=== PATIENT | female | born 1955 | race Caucasian/White ===

== ENCOUNTER → 2017-05-09 | Day surgery (SDC) | payer MEDICARE ==
[~2017-05-09] MED LIST: APRI0.372 PO; ASPI81TA82 PO; BD P32MI; BYET10IN2 SQ; CHOL1CAP PO; CHOL4 PO; CHOL4POW4 PO; EXEN10PE SQ; FURO40TA PO; GABA300C3 PO; GABA300C5 PO; GLIP10TA6 PO; GLUCOMETER XX; LACTATED RINGER'S 1000 ML INJ 1,000 ML ONE; LEVO200T4 PO; LEVO25TA4 PO; LISI-519 PO; MEDICAL COMPRES1 MI3; METF1000 PO; POTA-243 PO; PROPOFOL 500 MG/50 ML BTL IV ONE; SIMV20TA PO; THEO200T27 PO; THEO400T2 PO; TRAM50TA PO; VARE.5 PO; VARE1 PO
--- NOTE | 2017-05-09 13:14 | GIPROC ---
[facility] [address] [facility], [id number] COLONOSCOPY PROCEDURE REPORT EXAM DATE: 05/09/2017 PATIENT NAME: Naomy Stephen MR #: [id number] BIRTHDATE: 1955 ENDOSCOPIST: Corbin Mae MD ORDER #: [id number] COMBINE OPERATOR: Annie Benito RN STATUS: outpatient INDICATIONS: The patient is a 62 yr old female here for a colonoscopy due to follow up on UC PROCEDURE PERFORMED: Colonoscopy with biopsy MEDICATIONS: None and Per Anesthesia. PREP QUALITY: good ESTIMATED BLOOD LOSS: None CONSENT: The patient understands the risks and benefits of the procedure and understands that these risks include, but are not limited to: sedation, allergic reaction, infection, perforation and/or bleeding. Alternative means of evaluation and treatment include, among others: physical exam, x-rays, and/or surgical intervention. The patient elects to proceed with this endoscopic procedure. medical equipment was checked for proper function. Hand hygiene and appropriate measures for infection prevention was taken. After the risks, benefits and alternatives of the procedure were thoroughly explained, Informed consent was verified, confirmed and timeout was successfully executed by the treatment team. A digital exam revealed no abnormalities of the rectum The EC-[id number] ([id number] endoscope was introduced through the anus and advanced to the cecum, which was identified by both the appendix and ileocecal valve. The instrument was then slowly withdrawn as the colon was fully examined. COLON FINDINGS: A large sized patch of colitis was found in the sigmoid colon. The mucosa was edematous, erythematous and ulcerated. This is consistent with ulcerative colitis disease. Multiple biopsies were performed. The colon mucosa was otherwise normal. Multiple random biopsies of the area were performed. Retroflexed views revealed no abnormalities The scope was then completely withdrawn from the patient and the procedure terminated. PROCEDURE WITHDRAWAL TIME:13.6minutes ADVERSE EVENTS: There were no complications. IMPRESSIONS: 1. Large sized colitis was found in the sigmoid colon; The mucosa was edematous, erythematous and ulcerated; This is consistent with ulcerative colitis.; multiple biopsies were performed 2. The colon mucosa was otherwise normal; multiple random biopsies of the area were performed 3. Retroflexed views revealed no abnormalities 4. Revealed no abnormalities of the rectum RECOMMENDATIONS: 1. Await biopsy results. Biopsy results will not be ready for 7-10 days. If you don't hear from us in two weeks, call our office for results. 2. Follow-up: GI Clinic 3 week(s) 3. Consider adding treatment or increasing dose RECALL: Return 1 year Colonoscopy Corbin Mae MD eSigned: Corbin Mae MD 05/09/2017 1:14 PM cc: Enedelia Arita PATIENT NAME: Naomy Stephen MR#: [id number]
== END | disposition home or self-care (01) ==
LOC: ESDC 10:09
PROVIDERS: ATTEND Internal Medicine Gastroenterology
DX: K51.90 Ulcerative colitis, unspecified, without complications (principal)
CPT/HCPCS: 00810; 45380; 88305; J7120

== ENCOUNTER 2017-08-25 08:11 | Observation (INO) | payer MEDICARE, MEDICAID ==
[2017-08-25] VITALS (12 sets, daily range): BP systolic 131–201; BP diastolic 68–88; PULSE 64–113; RESP 14–20; TEMP 97.6–98.7; O2SAT 94–100
[~2017-08-25] VITALS: Ht 165.1 cm; Wt 100.0 kg
[~2017-08-25 08:11] MED LIST changes: -LACTATED RINGER'S 1000 ML INJ 1,000 ML ONE; +LANTINJ SQ; +LEVO-171 PO; -LEVO200T4 PO; -LEVO25TA4 PO; +LEVO75TA3 PO; -PROPOFOL 500 MG/50 ML BTL IV ONE
[2017-08-25] MEDS ORDERED: ASPI81CH CHEW (08:54)
[2017-08-25] MEDS ORDERED: LEVO75TA3 PO (08:54)
[2017-08-25] MEDS ORDERED: SIMV20TA PO (08:54)
[2017-08-25] MEDS ORDERED: FURO80TA PO (08:54)
[2017-08-25] MEDS ORDERED: THEO400T2 PO (08:54)
[2017-08-25] MEDS ORDERED: LISI-519 PO (08:54)
[2017-08-25] MEDS ORDERED: POTA-163 PO (08:54)
[2017-08-25] MEDS ORDERED: GABA300C5 PO ×2 (08:54→17:04)
[2017-08-25] MEDS ORDERED: GLIP10TA6 PO (08:54)
[2017-08-25] MEDS ORDERED: CHOLESTRAMINE (08:54)
[2017-08-25] MEDS ORDERED: METF1000 PO (08:54)
[2017-08-25] MEDS ORDERED: APRI0.372 PO (08:54)
[2017-08-25] MEDS ORDERED: CHOL1CAP PO (08:54)
[2017-08-25] MEDS ORDERED: BUDE3CAP PO (08:54)
[2017-08-25] MEDS ORDERED: MORPHINE SULFATE 4 MG/ML INJ IV PUSH ONE (09:00)
[2017-08-25] MEDS ORDERED: ONDANSETRON HCL 4 MG/2 ML VIAL IV PUSH ONE (09:00)
[2017-08-25] MEDS ORDERED: SODIUM CHLORIDE 0.9% FLUSH 10 ML FLUSH IVF PRN (09:00)
[2017-08-25] MEDS ORDERED: ASPIRIN 81 MG CHEW TAB PO ONE (09:00)
[2017-08-25] MEDS ORDERED: LANTINJ SQ ×2 (09:01→17:05)
--- NOTE | 2017-08-25 09:24 | RADRPT ---
EXAM DATE/TIME: 08/25/2017 09:04 [facility] COMPARISON: CHEST SINGLE AP, March 07, 2016, 19:58. INDICATIONS : Chest pain. MEDICAL HISTORY : Myocardial infarction. Hypercholesterolemia. Chronic obstructive pulmonary disease. Thyroid disea se. Diabetic neuorpathy. CHF. CAD. Hypertension. Pneumonia. Sleep apnea.Dyspnea Hiatial Hernia. Arth ritis. Diabetic. SURGICAL HISTORY : Tonsillectomy. section. Tubal ligation. Cholecystectomy. ENCOUNTER: Initial ACUITY: 3 days PAIN SCORE: 7/10 LOCATION: chest FINDINGS: A single view of the chest demonstrates minimal bibasilar densities. Lungs are better aerated. Heart borderline enlarged. Osseous structures are intact. CONCLUSION: Minimal bibasilar densities likely atelectasis. Tom Smith MD on August 25, 2017 at 9:23 Board Certified Radiologist. This report was verified electronically.
[2017-08-25 09:32] LABS: BASOPHIL # 0.1 TH/MM3 (0-0.2); BASOPHIL % 0.8 % (0.0-2.0); EOSINOPHIL # 0.3 TH/MM3 (0-0.4); EOSINOPHIL % 2.5 % (0.0-4.0); HEMATOCRIT 38.1 % (35.0-46.0); HEMO FLAGS DIFF FINAL; LYMPH % 38.9 % (9.0-44.0); LYMPHOCYTE # 4.5 TH/MM3 (1.0-4.8); MEAN CELL VOLUME 85.8 FL (80.0-100.0); MEAN CORPUSCULAR HEMOGLOBIN 28.3 PG (27.0-34.0); MONO % 6.1 % (0.0-8.0); NEUT % 51.7 % (16.0-70.0); PLATELET COUNT 320 TH/MM3 (150-450); RED BLOOD COUNT 4.44 MIL/MM3 (4.00-5.30); RED CELL DISTRIBUTION WIDTH 13.9 % (11.6-17.2); WHITE BLOOD COUNT 11.6 TH/MM3 (4.0-11.0)
[2017-08-25 09:41] LABS: APTT (PATIENT) 26.8 SEC (24.3-30.1); INTERNATIONAL NORMALIZED RATIO 0.9 RATIO; PROTHROMBIN TIME - PATIENT 10.3 SEC (9.8-11.6)
[2017-08-25 09:51] LABS: ALT (GPT) 18 U/L (10-53)
[2017-08-25 09:55] LABS: ANION GAP 9 MEQ/L (5-15); AST (GOT) 22 U/L (15-37); BLOOD UREA NITROGEN 17 MG/DL (7-18); CHLORIDE 105 MEQ/L (98-107); GLOMERULAR FILTRATION RATE 117 ML/MIN (>89); POTASSIUM 4.9 MEQ/L (3.5-5.1); SODIUM (NA) 138 MEQ/L (136-145)
[2017-08-25 09:58] LABS: ALKALINE PHOSPHATASE 56 U/L (45-117); TOTAL BILIRUBIN ADULT 0.4 MG/DL (0.2-1.0)
[2017-08-25 10:02] LABS: CREATINE KINASE 82 U/L (26-192)
[2017-08-25] MEDS ORDERED: IOHEXOL 350 MG/ML 10 ML VIAL (for RAD DIAG) IVCONTRAST ONE (10:18)
--- NOTE | 2017-08-25 10:44 | RADRPT ---
EXAM DATE/TIME: 08/25/2017 10:03 [facility] COMPARISON: CT ABDOMEN & PELVIS W CONTRAST, March 11, 2016, 14:52. INDICATIONS : Left lower abdominal pain IV CONTRAST: 96 cc Omnipaque 350 (iohexol) IV ORAL CONTRAST: No oral contrast ingested. RADIATION DOSE: 23.06 CTDIvol (mGy) ; Patient body habitus MEDICAL HISTORY : Hypertension. Cardiovascular disease Chronic obstructive pulmonary disease.Diabetes SURGICAL HISTORY : Tubal ligation. ENCOUNTER: Initial ACUITY: 1 day PAIN SCALE: 6/10 LOCATION: Left lower quadrant TECHNIQUE: Volumetric scanning of the abdomen and pelvis was performed. Using automated exposure control and ad justment of the mA and/or kV according to patient size, radiation dose was kept as low as reasonably achievable to obtain optimal diagnostic quality images. DICOM format image data is available electro nically for review and comparison. FINDINGS: LOWER LUNGS: Multiple nodular densities are seen within the lung bases. The largest measures 6 mm on the right. Th esha are new from the prior study. The heart is at the upper limits of normal in terms of size. No per icardial effusion. LIVER: There is a lobulated contour to the liver consistent with cirrhosis. The portal vein remains patent. No recannulated periumbilical vein observed. Gallbladder is surgically absent. No mass or ductal dila tation. SPLEEN: Normal size without lesion. PANCREAS: Within normal limits. KIDNEYS: Normal in size and shape. There is no mass, stone or hydronephrosis. ADRENAL GLANDS: Within normal limits. VASCULAR: There is no aortic aneurysm. BOWEL/MESENTERY: The stomach, small bowel, and colon demonstrate no acute abnormality. There is no free intraperitone al air or fluid. ABDOMINAL WALL: There is stranding of the subcutaneous fat involving the intra-abdominal wall. No hematoma or abscess . RETROPERITONEUM: There is no lymphadenopathy. BLADDER: No wall thickening or mass. REPRODUCTIVE: Within normal limits. INGUINAL: There is no lymphadenopathy or hernia. MUSCULOSKELETAL: Within normal limits for patient age. CONCLUSION: 1. No acute abnormality to explain the patient's pain. 2. Multiple new pulmonary nodules involving the lung bases worrisome for metastatic disease. CT of th e thorax is suggested to further evaluate. 3. Cirrhosis. 4. Prior cholecystectomy. 5. Edema involving the anterior abdominal wall. Steve Lagos Jr., MD on August 25, 2017 at 10:37 Board Certified Radiologist. This report was verified electronically.
--- NOTE | 2017-08-25 12:11 | RADRPT ---
EXAM DATE/TIME: 08/25/2017 11:44 This report includes an Addendum and supersedes previous reports for this exam. [facility] COMPARISON: CT ABDOMEN & PELVIS W CONTRAST, March 11, 2016, 14:52. CHEST SINGLE AP, August 25, 2017, 9:04. INDICATIONS : Mass. left sided chest pain, shortness of breath RADIATION DOSE: 7.83 CTDIvol (mGy) MEDICAL HISTORY : Cardiovascular disease. Chronic obstructive pulmonary disease. Diabetes SURGICAL HISTORY : Tubal ligation. ENCOUNTER: Initial ACUITY: 1 week PAIN SCALE: 5/10 LOCATION: chest TECHNIQUE: Volumetric scanning of the chest was performed. Using automated exposure control and adjustment of t he mA and/or kV according to patient size, radiation dose was kept as low as reasonably achievable to obtain optimal diagnostic quality images. DICOM format image data is available electronically for r eview and comparison. Follow-up recommendations for detected pulmonary nodules are based at a minimum on nodule size and pa tient risk factors according to Fleischner Society Guidelines. FINDINGS: LUNGS: There is respiratory motion artifact. Subtle areas of groundglass attenuation are present in the uppe r lobes bilaterally and there is mild atelectasis at the lung bases. In the left upper lobe there is a 3 mm noncalcified pulmonary nodule on image 14, in the left lower lobe there is a subpleural 3 mm n odule in image 27, and in the left lower lobe there is a 4 mm noncalcified pulmonary nodule on image 34. In the right lower lobe there is a 5 mm noncalcified pulmonary nodule in image 35. PLEURAE: There is no pleural thickening or pleural effusion. MEDIASTINUM: The heart and great vessels demonstrate no acute abnormality. Coronary artery calcification is presen t. There is no mediastinal or hilar lymphadenopathy. AXILLAE: Within normal limits. No lymphadenopathy. MUSCULOSKELETAL: There are degenerative changes of the thoracic spine. MISCELLANEOUS: Please refer to abdomen and pelvis CT report for description of the subdiaphragmatic findings. CONCLUSION: 1. Examination quality mildly degraded by respiratory motion artifact. There is no mass visualized. M ild groundglass attenuation in the upper lobes could represent an inflammatory or infectious process. 2. A total of 4 pulmonary nodules are identified measuring up to 5 mm. Suggest correlating with any p rior chest CTs that could confirm longer-term stability. If none are available suggest six-month foll owup noncontrast chest CT to confirm stability. 3. Coronary artery calcification. Román Haines MD on August 25, 2017 at 12:02 Board Certified Radiologist. This report was verified electronically. ADDENDUM: COMPARISON: CTA CHEST W 3D RECON, January 20, 2012, 23:43. 2 new nodular opacities one in each upper lobe measuring approximately 4 mm were not seen on the prev ious study. Small nodules in the right lower lobe described above are stable. The patchy groundglass airspace disease throughout both lungs was not seen previously. Six-month followup is again recommended. Amanuel Le MD on August 26, 2017 at 9:31 Board Certified Radiologist. This report was verified electronically.
--- NOTE | 2017-08-25 13:02 | PD ---
HPI Chief Complaint: Chest Pain Time Seen by Provider: 08:38 Travel History International Travel<30 days: No Contact w/Intl Traveler<30days: No Traveled to known affect area: No History of Present Illness HPI Patient is a 62 year old female with history of COPD, CHF, CAD, who comes in complaining of chest pain and SOB. She says this started a few days ago. She says the pain comes and goes and has been getting worse. She describes it as a pressure like sensation over the center of her chest. She says the shortness of breath comes on with exertion and laying flat. She has chronic swelling of her legs, which is worse despite taking Lasix and Bumex. She also complains of pain to her left side of her abdomen. She has history of ulcerative colitis and has had this pain before. She says last time she was told she had ischemic bowel. She denies fever or chills. She denies cough or cold. PFSH Past Medical History Arthritis: Yes Asthma: No Blood Disorders: No Anxiety: No Depression: No Cancer: No Cardiovascular Problems: Yes High Cholesterol: Yes Congestive Heart Failure: Yes COPD: Yes Coronary Artery Disease: Yes Diabetes: Yes Patient Takes Glucophage: Yes Diminished Hearing: No Endocrine: Yes Gastrointestinal Disorders: Yes GERD: No Genitourinary: No Hiatal Hernia: Yes Hypertension: Yes Immune Disorder: No Implanted Vascular Access Dvce: No Musculoskeletal: Yes (Hip problems ) Neurologic: No Psychiatric: No Reproductive: No Respiratory: Yes Myocardial Infarction: Yes Pneumonia: Yes Seizures: No Sleep Apnea: Yes Thyroid Disease: Yes Tetanus Vaccination: > 5 Years Influenza Vaccination: No ?: Not Menopausal: Yes : 5 Para: 5 Tubal Ligation: Yes Past Surgical History Abdominal Surgery: Yes Cardiac Surgery: No Section: Yes (X 1) Cholecystectomy: Yes Ear Surgery: No Endocrine Surgery: Yes Eye Surgery: Yes Genitourinary Surgery: No Gynecologic Surgery: Yes Oral Surgery: Yes Thoracic Surgery: No Tonsillectomy: Yes Other Surgery: Yes (PARTIAL THYROIDECTOMY) Social History Alcohol Use: No Tobacco Use: Yes (1/2 PACK A DAY) Substance Use: No Allergies-Medications (Allergen,Severity, Reaction): Coded Allergies: penicillin V (Unverified Allergy, Intermediate, RASH, 08/25/17) RAsh all over body penicillin G (Unverified Allergy, Mild, Rash, 08/25/17) mild Uncoded Allergies: TRANSPORE TAPE (Adverse Reaction, Severe, 04/04/13) Reported Meds & Prescriptions Reported Meds & Active Scripts Active Reported Lantus Solostar Pen Inj (Insulin Glargine) 300 Unit/3 Ml Pen [address] (Budesonide) 3 Mg Capdr 6 Mg PO DAILY Glipizide 10 Mg Tab 10 Mg PO DAILY Take 30 minutes before a meal [Cholestramine] Aspirin 81 Mg Chew 81 Mg CHEW DAILY Levothyroxine (Levothyroxine Sodium) 75 Mcg Tab 75 Mcg PO DAILY Lisinopril 5 Mg Tab 5 Mg PO DAILY Metformin (Metformin HCl) 1,000 Mg Tab 1,000 Mg PO BIDPC Simvastatin 20 Mg Tab 20 Mg PO DAILY Theophylline ER 24 HR (Theophylline) 400 Mg Tab 400 Mg PO DAILY Fenofibric Acid Dr (Choline Fenofibrate DR) 45 mg Capdr 45 Mg PO DAILY Furosemide 80 Mg Tab 80 Mg PO BID Potassium Chloride ER (Potassium Chloride) 20 Meq Tab 20 Meq PO BID Gabapentin 300 Mg Cap 900 Mg PO TID Apriso (Mesalamine) 0.375 Gm Caper 1.5 Gm PO DAILY Review of Systems Except as stated in HPI: all other systems reviewed are Neg General / Constitutional: No: Fever Eyes: No: Blurred Vision HENT: No: Headaches, Lightheadedness Cardiovascular: Positive: Chest Pain or Discomfort Respiratory: Positive: Shortness of Breath Gastrointestinal: Positive: Abdominal Pain, No: Nausea, Vomiting Genitourinary: No: Dysuria Musculoskeletal: Positive: Edema Skin: No Rash, No Change in Pigmentation Neurologic: No: Weakness, Dizziness Physical Exam Narrative GENERAL: Awake and alert, in no acute distress. SKIN: Focused skin assessment warm/dry. HEAD: Atraumatic. Normocephalic. EYES: Pupils equal and round. No scleral icterus. ENT: Mucous membranes pink and moist. NECK: Trachea midline. No JVD. CARDIOVASCULAR: Regular rate and rhythm. No murmur appreciated. RESPIRATORY: No accessory muscle use. Crackles at both lung bases. Breath sounds equal bilaterally. GASTROINTESTINAL: Abdomen soft, nondistended. Tender to palpation of the left side of the abdomen, no rebound or guarding. MUSCULOSKELETAL: No obvious deformities. No clubbing. No cyanosis. 2+ pitting edema of bilateral lower extremities. NEUROLOGICAL: Awake and alert. No obvious cranial nerve deficits. Motor grossly within normal limits. Normal speech. PSYCHIATRIC: Appropriate mood and affect; insight and judgment normal. Data Data Last Documented VS Vital Signs Date Time Temp Pulse Resp B/P (MAP) Pulse Ox O2 Delivery O2 Flow Rate FiO2 08/25/17 12:16 76 18 189/79 (115) 99 Nasal Cannula 2.00 08/25/17 08:13 98.7 Orders Orders Electrocardiogram (08/25/17 08:46) B-Type Natriuretic Peptide (08/25/17 08:46) Ckmb (Isoenzyme) Profile (08/25/17 08:46) Complete Blood Count With Diff (08/25/17 08:46) Comprehensive Metabolic Panel (08/25/17 08:46) Prothrombin Time / Inr (Pt) (08/25/17 08:46) Act Partial Throm Time (Ptt) (08/25/17 08:46) Troponin I (08/25/17 08:46) Chest, Single Ap (08/25/17 08:46) Ecg Monitoring (08/25/17 08:46) Bilateral Bp Monitoring (08/25/17 08:46) Iv Access Insert/Monitor (08/25/17 08:46) Oximetry (08/25/17 08:46) Oxygen Administration (08/25/17 08:46) Aspirin Chew (Aspirin Chew) (08/25/17 09:00) Sodium Chloride 0.9% Flush (Ns Flush) (08/25/17 09:00) Lactic Acid (08/25/17 08:46) Ct Abd/Pel W Iv Contrast(Rout) (08/25/17 ) Morphine Inj (Morphine Inj) (08/25/17 09:00) Ondansetron Inj (Zofran Inj) (08/25/17 09:00) Iohexol 350 Inj (Omnipaque 350 Inj) (08/25/17 10:18) Ct Thorax/ Chest Wo Iv Contras (08/25/17 ) Admit Order (Ed Use Only) (08/25/17 ) Labs Laboratory Tests Test 08/25/17 09:05 08/25/17 09:30 White Blood Count 11.6 TH/MM3 Red Blood Count 4.44 MIL/MM3 Hemoglobin 12.6 GM/DL Hematocrit 38.1 % Mean Corpuscular Volume 85.8 FL Mean Corpuscular Hemoglobin 28.3 PG Mean Corpuscular Hemoglobin Concent 33.0 % Red Cell Distribution Width 13.9 % Platelet Count 320 TH/MM3 Mean Platelet Volume 7.2 FL Neutrophils (%) (Auto) 51.7 % Lymphocytes (%) (Auto) 38.9 % Monocytes (%) (Auto) 6.1 % Eosinophils (%) (Auto) 2.5 % Basophils (%) (Auto) 0.8 % Neutrophils # (Auto) 6.0 TH/MM3 Lymphocytes # (Auto) 4.5 TH/MM3 Monocytes # (Auto) 0.7 TH/MM3 Eosinophils # (Auto) 0.3 TH/MM3 Basophils # (Auto) 0.1 TH/MM3 CBC Comment DIFF FINAL Differential Comment Prothrombin Time 10.3 SEC Prothromb Time International Ratio 0.9 RATIO Activated Partial Thromboplast Time 26.8 SEC Blood Urea Nitrogen 17 MG/DL Creatinine 0.53 MG/DL Random Glucose 146 MG/DL Total Protein 6.6 GM/DL Albumin 2.7 GM/DL Calcium Level 8.6 MG/DL Alkaline Phosphatase 56 U/L Aspartate Amino Transf (AST/SGOT) 22 U/L Alanine Aminotransferase (ALT/SGPT) 18 U/L Total Bilirubin 0.4 MG/DL Sodium Level 138 MEQ/L Potassium Level 4.9 MEQ/L Chloride Level 105 MEQ/L Carbon Dioxide Level 24.0 MEQ/L Anion Gap 9 MEQ/L Estimat Glomerular Filtration Rate 117 ML/MIN Total Creatine Kinase 82 U/L Troponin I 0.02 NG/ML B-Type Natriuretic Peptide 111 PG/ML Lactic Acid Level 2.0 mmol/L MDM Medical Decision Making Medical Screen Exam Complete: Yes Emergency Medical Condition: Yes Medical Record Reviewed: Yes Interpretation(s) ECG shows NSR at 81 with PVCs. RBBB. Differential Diagnosis ACS vs CHF exacerbation vs UC flare Narrative Course Patient is a 62-year-old female who comes in complaining of chest pain and shortness of breath. Exam shows edema bilateral lower extremities. IV established, labs sent. Labs show no acute abnormalities. Chest x-ray performed shows no acute abnormalities. CT abdomen and pelvis performed shows no abnormalities in the abdomen, however there were some nodules seen in her chest, CT of the chest is recommended. This was performed that showed nodules, no evidence of the mass. Follow-up suggested in 6 months. Patient given aspirin. Given morphine for pain. She'll be placed in the chest pain center for further management. Diagnosis Primary Impression: Chest pain Qualified Codes: R07.9 - Chest pain, unspecified Admitting Information Admitting Physician Requests: Observation Condition: Stable Irma Muhammad MD Aug 25, 2017 13:02
[2017-08-25] MEDS ORDERED: ONDANSETRON HCL 4 MG/2 ML VIAL IV PUSH PRN (14:00)
[2017-08-25] MEDS ORDERED: NITROGLYCERIN 0.4 MG SL 25 TABS/BTL SL PRN (14:00)
[2017-08-25] MEDS ORDERED: ACETAMINOPHEN 500 MG CPLT PO PRN (14:00)
--- NOTE | 2017-08-25 14:55 | HHI.HP ---
HPI Primary Care Physician Socorro Mcnamara MD Chief Complaint SOB Edema Chest Pain History of Present Illness 62 year old obese patient with long complex medical history. She supposedly had an IN at age 23 seen [facility] Pugh but never evaluated. She has extensive hx of COPD including coma from respiratory failure and still continues to smoke a pack a day. she has had episodic CHF for 16 years and massive edema poorly controlled on Lasix 80 a day. currently she c/o increasing SOB for about 2 months and some intermittent sharp chest pain in the left lateral chest and the right mid chest. this is graded 5/10 with no radiation lasting only a few minutes. There are no precipitating or relieving factors. She is followed by Dr Fragoso with a nuclear stress about 2 weeks ago that was "pretty good" an ECHO several months ago, carotid studies, CXR, ultrasound of legs. She is already scheduled for f/u but he is out of town at this time. Review of Systems Consitutional: COMPLAINS OF: Weight gain Respiratory: COMPLAINS OF: Shortness of breath Cardiovascular: COMPLAINS OF: Chest pain Gastrointestinal: COMPLAINS OF: Change in bowel habits Musculoskeletal: COMPLAINS OF: Joint pain Endocrine: COMPLAINS OF: Weight gain Past Family Social History Allergies: Coded Allergies: penicillin V (Unverified Allergy, Intermediate, RASH, 08/25/17) RAsh all over body penicillin G (Unverified Allergy, Mild, Rash, 08/25/17) mild Uncoded Allergies: TRANSPORE TAPE (Adverse Reaction, Severe, 04/04/13) Past Medical History COPD CHF DM HYPOTHYROID CAD BY HX HTN LIPIDS ISCHEMIC COLITIS ULCERATIVE COLITIS NODULES LUNGS NECROSIS OF HIPS CIRRHOSIS Past Surgical History CHOLECYSTECTOMY ABD WALL HERNIA INGUINAL HERNIA THYROID Reported Medications Reported Meds & Active Scripts Active Reported Lantus Solostar Pen Inj (Insulin Glargine) 300 Unit/3 Ml Pen [address] (Budesonide) 3 Mg Capdr 6 Mg PO DAILY Glipizide 10 Mg Tab 10 Mg PO DAILY Take 30 minutes before a meal [Cholestramine] Aspirin 81 Mg Chew 81 Mg CHEW DAILY Levothyroxine (Levothyroxine Sodium) 75 Mcg Tab 75 Mcg PO DAILY Lisinopril 5 Mg Tab 5 Mg PO DAILY Metformin (Metformin HCl) 1,000 Mg Tab 1,000 Mg PO BIDPC Simvastatin 20 Mg Tab 20 Mg PO DAILY Theophylline ER 24 HR (Theophylline) 400 Mg Tab 400 Mg PO DAILY Fenofibric Acid Dr (Choline Fenofibrate DR) 45 mg Capdr 45 Mg PO DAILY Furosemide 80 Mg Tab 80 Mg PO BID Potassium Chloride ER (Potassium Chloride) 20 Meq Tab 20 Meq PO BID Gabapentin 300 Mg Cap 900 Mg PO TID Apriso (Mesalamine) 0.375 Gm Caper 1.5 Gm PO DAILY Active Ordered Medications Current Medications Medications (Trade) Dose Ordered Sig/Cortez Route Start Time Stop Time Status Last Admin (NS Flush) 2 ml UNSCH PRN IVF 08/25/17 09:00 (NS Flush) 2 ml BID IV FLUSH 08/25/17 21:00 UNV (Tylenol) 500 mg Q4H PRN PO 08/25/17 14:00 UNV (Zofran Inj) 4 mg Q6H PRN IV PUSH 08/25/17 14:00 UNV (Nitrostat Sl) 0.4 mg Q5M PRN SL 08/25/17 14:00 UNV (Aspirin) 325 mg DAILY PO 08/26/17 09:00 UNV Family History Father and mother both of massive heart attacks and diabetes 1 sister of suicide Social History Has smoked since age 16 and continues to smoke a pack a day in spite of having been in coma secondary to hypoxemia. Denies alcohol and drugs Physical Exam Vital Signs Vital Signs Date Time Temp Pulse Resp B/P (MAP) Pulse Ox O2 Delivery O2 Flow Rate FiO2 08/25/17 14:03 100 Nasal Cannula 2.00 08/25/17 13:16 74 18 171/76 (107) 98 Nasal Cannula 2.00 08/25/17 12:16 76 18 189/79 (115) 99 Nasal Cannula 2.00 08/25/17 09:06 131/68 (89) 155/76 (102) 08/25/17 08:57 Nasal Cannula 2.00 08/25/17 08:57 Nasal Cannula 2.00 08/25/17 08:57 94 Room Air 08/25/17 08:13 98.7 97 14 201/88 (125) 94 Physical Exam GENERAL: Obese with massive edema on O2 SKIN: Warm and dry. HEAD: Atraumatic. Normocephalic. EYES: Pupils equal and round. No scleral icterus. No injection or drainage. PERLI ENT: No nasal bleeding or discharge. Mucous membranes pink and moist. Edentulous (1 tooth) NECK: Trachea midline. No JVD. Healed scar from thyroid CARDIOVASCULAR: Regular rate and rhythm. Distant HS RESPIRATORY: Labored breathing, severely dec. BS with fine crackles both posterior segovia. GASTROINTESTINAL: Abdomen scars, edematous, soft, non-tender. Hepatic and splenic margins not palpable. MUSCULOSKELETAL: Extremities without clubbing, cyanosis but 4+ pitting. No obvious deformities. NEUROLOGICAL: Awake and alert. No obvious cranial nerve deficits. Motor grossly within normal limits. Five out of 5 muscle strength in the arms and legs. Normal speech. PSYCHIATRIC: General affect seems inappropriate to severity of her issues. Responses seem light and seems to lack recognition of severity of her health. Laboratory Laboratory Tests Test 08/25/17 09:05 08/25/17 09:30 White Blood Count 11.6 Red Blood Count 4.44 Hemoglobin 12.6 Hematocrit 38.1 Mean Corpuscular Volume 85.8 Mean Corpuscular Hemoglobin 28.3 Mean Corpuscular Hemoglobin Concent 33.0 Red Cell Distribution Width 13.9 Platelet Count 320 Mean Platelet Volume 7.2 Neutrophils (%) (Auto) 51.7 Lymphocytes (%) (Auto) 38.9 Monocytes (%) (Auto) 6.1 Eosinophils (%) (Auto) 2.5 Basophils (%) (Auto) 0.8 Neutrophils # (Auto) 6.0 Lymphocytes # (Auto) 4.5 Monocytes # (Auto) 0.7 Eosinophils # (Auto) 0.3 Basophils # (Auto) 0.1 CBC Comment DIFF FINAL Differential Comment Prothrombin Time 10.3 Prothromb Time International Ratio 0.9 Activated Partial Thromboplast Time 26.8 Blood Urea Nitrogen 17 Creatinine 0.53 Random Glucose 146 Total Protein 6.6 Albumin 2.7 Calcium Level 8.6 Alkaline Phosphatase 56 Aspartate Amino Transf (AST/SGOT) 22 Alanine Aminotransferase (ALT/SGPT) 18 Total Bilirubin 0.4 Sodium Level 138 Potassium Level 4.9 Chloride Level 105 Carbon Dioxide Level 24.0 Anion Gap 9 Estimat Glomerular Filtration Rate 117 Total Creatine Kinase 82 Troponin I 0.02 B-Type Natriuretic Peptide 111 Lactic Acid Level 2.0 Result Diagram: 08/25/1790408/25/17904 Caprini VTE Risk Assessment Caprini VTE Risk Assessment: Mod/High Risk (score >= 2) Caprini Risk Assessment Model Point Value = 1 Point Value = 2 Point Value = 3 Point Value = 5 Age 41-60 Minor surgery BMI > 25 kg/m2 Swollen legs Varicose veins or History of unexplained or recurrent spontaneous Oral contraceptives or hormone replacement Sepsis (< 1 month) Serious lung disease, including pneumonia (< 1 month) Abnormal pulmonary function Acute myocardial infarction Congestive heart failure (< 1 month) History of inflammatory bowel disease Medical patient at bed rest Age 61-74 Arthroscopic surgery Major open surgery (> 45 min) Laparoscopic surgery (> 45 min) Malignancy Confined to bed (> 72 hours) Immobilizing plaster cast Central venous access Age >= 75 History of VTE Family history of VTE Factor V Leiden Prothrombin [id number] Lupus anticoagulant Anticardiolipin antibodies Elevated serum homocysteine Heparin-induced thrombocytopenia Other congenital or acquired thrombophilia Stroke (< 1 month) Elective arthroplasty Hip, pelvis, or leg fracture Acute spinal cord injury (< 1 month) Prophylaxis Regimen Total Risk Factor Score Risk Level Prophylaxis Regimen 0-1 Low Early ambulation 2 Moderate Order ONE of the following: *Sequential Compression Device (SCD) *Heparin 5000 units SQ BID 3-4 Higher Order ONE of the following medications: *Heparin 5000 units SQ TID *Enoxaparin/Lovenox 40 mg SQ daily (WT < 150 kg, CrCl > 30 mL/min) *Enoxaparin/Lovenox 30 mg SQ daily (WT < 150 kg, CrCl > 10-29 mL/min) *Enoxaparin/Lovenox 30 mg SQ BID (WT < 150 kg, CrCl > 30 mL/min) AND/OR *Sequential Compression Device (SCD) 5 or more Highest Order ONE of the following medications: *Heparin 5000 units SQ TID (Preferred with Epidurals) *Enoxaparin/Lovenox 40 mg SQ daily (WT < 150 kg, CrCl > 30 mL/min) *Enoxaparin/Lovenox 30 mg SQ daily (WT < 150 kg, CrCl > 10-29 mL/min) *Enoxaparin/Lovenox 30 mg SQ BID (WT < 150 kg, CrCl > 30 mL/min) AND *Sequential Compression Device (SCD) Assessment and Plan Problem List: (1) Pulmonary nodule seen on imaging study ICD Codes: R91.1 - Solitary pulmonary nodule Status: Chronic (2) CHF (congestive heart failure), NYHA class III ICD Codes: I50.9 - Heart failure, unspecified Status: Acute (3) Cirrhosis ICD Codes: K74.60 - Unspecified cirrhosis of liver Status: Chronic (4) Chronic diarrhea ICD Codes: K52.9 - Noninfective gastroenteritis and colitis, unspecified Status: Chronic (5) Chronic congestive heart failure Status: Acute (6) Dyslipidemia Status: Chronic (7) Tobacco dependence, continuous Status: Chronic (8) Benign essential hypertension Status: Chronic (9) Ischemic colitis ICD Codes: K55.9 - Vascular disorder of intestine, unspecified Status: Chronic (10) Chronic obstructive lung disease ICD Codes: J44.9 - Chronic obstructive lung disease Status: Chronic (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 - Type 1 diabetes mellitus without complications Status: Chronic (12) Hypothyroidism ICD Codes: E03.9 - Hypothyroidism, unspecified Status: Chronic (13) DM (diabetes mellitus) ICD Codes: E11.9 - Type 2 diabetes mellitus without complications Status: Chronic (14) Chest pain ICD Codes: R07.9 - Chest pain, unspecified Status: Acute (15) Restrictive lung disease ICD Codes: J98.4 - Restrictive lung disease Status: Chronic (16) Hip pain, chronic ICD Codes: G89.29 - Other chronic pain; M25.559 - Chronic hip pain Status: Chronic Problem Qualifiers (1) CHF (congestive heart failure), NYHA class III: Qualified Codes: I50.9 - Heart failure, unspecified (2) Chest pain: Qualified Codes: R07.9 - Chest pain, unspecified Steven Shields MD Aug 25, 2017 14:55
--- NOTE | 2017-08-25 15:44 | PD.CARD.PN ---
Subjective Subjective Remarks No further complaints. States "small, quick chest pains are gone." Reports she is more concerned with exertional shortness of breath and retention of fluid. Objective Medications Current Medications Medications (Trade) Dose Ordered Sig/Cortez Route Start Time Stop Time Status Last Admin (NS Flush) 2 ml UNSCH PRN IVF 08/25/17 09:00 (NS Flush) 2 ml BID IV FLUSH 08/25/17 21:00 (Tylenol) 500 mg Q4H PRN PO 08/25/17 14:00 (Zofran Inj) 4 mg Q6H PRN IV PUSH 08/25/17 14:00 (Nitrostat Sl) 0.4 mg Q5M PRN SL 08/25/17 14:00 (Aspirin) 325 mg DAILY PO 08/26/17 09:00 Vital Signs / I&O Vital Signs Date Time Temp Pulse Resp B/P (MAP) Pulse Ox O2 Delivery O2 Flow Rate FiO2 08/25/17 14:03 100 Nasal Cannula 2.00 08/25/17 13:16 74 18 171/76 (107) 98 Nasal Cannula 2.00 08/25/17 12:16 76 18 189/79 (115) 99 Nasal Cannula 2.00 08/25/17 09:06 131/68 (89) 155/76 (102) 08/25/17 08:57 Nasal Cannula 2.00 08/25/17 08:57 Nasal Cannula 2.00 08/25/17 08:57 94 Room Air 08/25/17 08:13 98.7 97 14 201/88 (125) 94 Physical Exam GENERAL: Alert WN, WD, NAD, pleasant, obese female HEAD: NC, AT CV: RRR, without murmur, rub, gallop, no JVD, S1-S2 no S3-S4. No carotid bruits RESP: Fine crackles bilateral bases otherwise diminished throughout, symmetrical chest rise, nonlabored, able to speak in full sentences. Wearing o2/ 2L nasal cannula. EXT: Pulses +14, bilateral lower dependent edema +4 PSYCH: A+O 3, pleasant affect, appropriate speech, appropriate mood and affect , insight and judgment Laboratory Laboratory Tests Test 08/25/17 09:05 08/25/17 09:30 White Blood Count 11.6 TH/MM3 Red Blood Count 4.44 MIL/MM3 Hemoglobin 12.6 GM/DL Hematocrit 38.1 % Mean Corpuscular Volume 85.8 FL Mean Corpuscular Hemoglobin 28.3 PG Mean Corpuscular Hemoglobin Concent 33.0 % Red Cell Distribution Width 13.9 % Platelet Count 320 TH/MM3 Mean Platelet Volume 7.2 FL Neutrophils (%) (Auto) 51.7 % Lymphocytes (%) (Auto) 38.9 % Monocytes (%) (Auto) 6.1 % Eosinophils (%) (Auto) 2.5 % Basophils (%) (Auto) 0.8 % Neutrophils # (Auto) 6.0 TH/MM3 Lymphocytes # (Auto) 4.5 TH/MM3 Monocytes # (Auto) 0.7 TH/MM3 Eosinophils # (Auto) 0.3 TH/MM3 Basophils # (Auto) 0.1 TH/MM3 CBC Comment DIFF FINAL Differential Comment Prothrombin Time 10.3 SEC Prothromb Time International Ratio 0.9 RATIO Activated Partial Thromboplast Time 26.8 SEC Blood Urea Nitrogen 17 MG/DL Creatinine 0.53 MG/DL Random Glucose 146 MG/DL Total Protein 6.6 GM/DL Albumin 2.7 GM/DL Calcium Level 8.6 MG/DL Alkaline Phosphatase 56 U/L Aspartate Amino Transf (AST/SGOT) 22 U/L Alanine Aminotransferase (ALT/SGPT) 18 U/L Total Bilirubin 0.4 MG/DL Sodium Level 138 MEQ/L Potassium Level 4.9 MEQ/L Chloride Level 105 MEQ/L Carbon Dioxide Level 24.0 MEQ/L Anion Gap 9 MEQ/L Estimat Glomerular Filtration Rate 117 ML/MIN Total Creatine Kinase 82 U/L Troponin I 0.02 NG/ML B-Type Natriuretic Peptide 111 PG/ML Lactic Acid Level 2.0 mmol/L Imaging Last 24 hours Impressions Chest X-Ray 08/25/17 0846 Signed Impressions: Service Date/Time: Friday, August 25, 2017 09:04 - CONCLUSION: Minimal bibasilar densities likely atelectasis. Tom Smith MD Chest CT 08/25/17 0000 Signed Impressions: Service Date/Time: Friday, August 25, 2017 11:44 - CONCLUSION: 1. Examination quality mildly degraded by respiratory motion artifact. There is no mass visualized. Mild groundglass attenuation in the upper lobes could represent an inflammatory or infectious process. 2. A total of 4 pulmonary nodules are identified measuring up to 5 mm. Suggest correlating with any prior chest CTs that could confirm longer-term stability. If none are available suggest six-month followup noncontrast chest CT to confirm stability. 3. Coronary artery calcification. Román Haines MD Abdomen/Pelvis CT 08/25/17 0000 Signed Impressions: Service Date/Time: Friday, August 25, 2017 10:03 - CONCLUSION: 1. No acute abnormality to explain the patient's pain. 2. Multiple new pulmonary nodules involving the lung bases worrisome for metastatic disease. CT of the thorax is suggested to further evaluate. 3. Cirrhosis. 4. Prior cholecystectomy. 5. Edema involving the anterior abdominal wall. 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 Echocardiogram a few months ago. Recent bilateral ultrasound of legs and carotids also completely unremarkable. Assessment and Plan Problem List: (1) CHF (congestive heart failure), NYHA class III ICD Codes: I50.9 - Heart failure, unspecified Status: Acute Plan: Furosemide 80 mg IV 1 dose. Repeat in 12 hours if diuresis not achieved. Strict I+Os, discussed with nurse and patient. Plan to discharge tomorrow. (2) Cirrhosis ICD Codes: K74.60 - Unspecified cirrhosis of liver Status: Chronic (3) Chronic diarrhea ICD Codes: K52.9 - Noninfective gastroenteritis and colitis, unspecified Status: Chronic Plan: Keep SPO2 greater than 92%. (4) Chronic congestive heart failure Status: Acute Plan: Continue metolazone and potassium, given lasix IV (5) Dyslipidemia Status: Chronic Plan: Continue simvastatin and fenofibrate (6) Tobacco dependence, continuous Status: Chronic Plan: Strongly encouraged and stressed the importance of tobacco cessation. Instructed her to quit smoking. (7) Benign essential hypertension Status: Chronic Plan: Continue to monitor. Continue home meds. (8) Ischemic colitis ICD Codes: K55.9 - Vascular disorder of intestine, unspecified Status: Chronic Plan: Continue home medication (9) Chronic obstructive lung disease ICD Codes: J44.9 - Chronic obstructive lung disease Status: Chronic (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: E10.9 - Type 1 diabetes mellitus without complications Status: Chronic Plan: Will continue Lantus 25 units every at bedtime, SSI medium dose coverage. Hold metformin due to recent CAT scan, continue glipizide. (11) Hypothyroidism ICD Codes: E03.9 - Hypothyroidism, unspecified Status: Chronic (12) DM (diabetes mellitus) ICD Codes: E11.9 - Type 2 diabetes mellitus without complications Status: Chronic (13) Chest pain ICD Codes: R07.9 - Chest pain, unspecified Status: Acute Plan: Diureses with Furosemide 80 mg IV x1 now, repeat in 12 hours if diureses not achieved. Ruled out with 3 sets of EKG and cardiac enzymes, no further cardiac testing has patient had normal nuclear stress test 2 weeks ago. Plan to discharge tomorrow. (14) Restrictive lung disease ICD Codes: J98.4 - Restrictive lung disease Status: Chronic (15) Hip pain, chronic ICD Codes: G89.29 - Other chronic pain; M25.559 - Chronic hip pain Status: Chronic (16) Pulmonary nodule seen on imaging study ICD Codes: R91.1 - Solitary pulmonary nodule Status: Chronic Problem Qualifiers (1) CHF (congestive heart failure), NYHA class III: Qualified Codes: I50.9 - Heart failure, unspecified (2) Chest pain: Qualified Codes: R07.9 - Chest pain, unspecified Sara Carmona Aug 25, 2017 15:44
[2017-08-25] MEDS ORDERED: FUROSEMIDE 100 MG/10 ML VIAL IV PUSH ONE (16:00)
[2017-08-25] MEDS ORDERED: METO5TAB3 PO (16:57)
[2017-08-25] MEDS ORDERED: DEXTROSE 50% IN WATER 50 ML VIAL(D50) IV PUSH PRN (17:00)
[2017-08-25] MEDS ORDERED: GLUCAGON 1 MG/ML VIAL OTHER PRN (17:00)
[2017-08-25] MEDS: INSULIN ASPART SUPPLEMENTAL SCALE SQ SCH ×2 (17:00→21:00)
[2017-08-25] MEDS ORDERED: CHOL4POW3 PO (17:01)
[2017-08-25] MEDS ORDERED: cloNIDine HCL 0.2 MG TAB PO PRN (17:45)
[2017-08-25] MEDS: PRAVASTATIN SOD 40 MG TAB PO SCH (17:54)
[2017-08-25] MEDS: GABAPENTIN 300 MG CAP PO SCH (19:11)
[2017-08-25] MEDS ORDERED: CHOLESTYRAMINE 4 GM PACKET PO SCH (21:00)
[2017-08-25] MEDS: SODIUM CHLORIDE 0.9% FLUSH 10 ML FLUSH IV FLUSH SCH (21:00)
[2017-08-25] MEDS: POTASSIUM CHLORIDE 20 MEQ CONTROLLED RELEASE TAB PO SCH (21:26)
--- NOTE | 2017-08-25 21:41 | EKG ---
Date Performed: 08/25/2017 Time Performed: 08:55:00 PTAGE: 62 years EKG: Sinus rhythm PAC INDETERMINATE AXIS DEVIATION RIGHT BUNDLE BRANCH BLOCK ABNORMAL ECG Compared to prior tracing no significant change DOCTOR: Zack Alvarado Interpretating Date/Time 08/25/2017 21:41:15
[2017-08-26 03:16] VITALS: BP 136/72; PULSE 100; RESP 18; TEMP 97.9; O2SAT 97
[2017-08-26] MEDS ORDERED: LEVOTHYROXINE SODIUM 75 MCG TAB PO SCH (06:00)
[2017-08-26 07:20] VITALS: PULSE 102
[2017-08-26 07:48] VITALS: BP 170/78; PULSE 107; RESP 18; TEMP 97.8; O2SAT 97
--- NOTE | 2017-08-26 08:10 | HHI.DCPOC ---
Discharge Care Plan Diagnosis: (1) COPD (chronic obstructive pulmonary disease) (2) Lung nodules (3) Chest pain (4) Chronic congestive heart failure (5) Tobacco dependence, continuous (6) DM (diabetes mellitus) (7) Benign essential hypertension (8) Dyslipidemia (9) Hypothyroidism Goals to Promote Your Health DISCUSS LUNG NODULES WITH YOUR PHYSICIAN WITHIN 1 WEEK. YOU NEED TO HAVE REPEAT CT OF LUNGS TO EVALUATE LUNG NODULES. HOLD METFORMIN FOR TWO DAYS. * To prevent worsening of your condition and complications * To maintain your health at the optimal level Directions to Meet Your Goals Take your medications as prescribed Follow your dietary instruction Follow activity as directed Keep your appointments as scheduled Take your immunizations and boosters as scheduled If your symptoms worsen call your PCP, if no PCP go to Urgent Care Center or Emergency Room Smoking is Dangerous to Your Health. Avoid second hand smoke Call the 24-hour hour crisis hotline for domestic abuse at Leonel Butler Aug 26, 2017 08:09
[2017-08-26] MEDS: SODIUM CHLORIDE 0.9% FLUSH 10 ML FLUSH IV FLUSH SCH (08:11)
[2017-08-26] MEDS: POTASSIUM CHLORIDE 20 MEQ CONTROLLED RELEASE TAB PO SCH (08:12)
[2017-08-26] MEDS: GABAPENTIN 300 MG CAP PO SCH (08:13)
[2017-08-26] MEDS: PRAVASTATIN SOD 40 MG TAB PO SCH (08:13)
--- NOTE | 2017-08-26 08:13 | PD.CARD.PN ---
Subjective Subjective Remarks Offers no complaint. States she urinated a lot last evening. Denies chest pain or shortness of breath. States the swelling in her legs have resolved. Objective Medications Current Medications Medications (Trade) Dose Ordered Sig/[place] Route Start Time Stop Time Status Last Admin (NS Flush) 2 ml UNSCH PRN IVF 08/25/17 09:00 (NS Flush) 2 ml BID IV FLUSH 08/25/17 21:00 (Tylenol) 500 mg Q4H PRN PO 08/25/17 14:00 (Zofran Inj) 4 mg Q6H PRN IV PUSH 08/25/17 14:00 (Nitrostat Sl) 0.4 mg Q5M PRN SL 08/25/17 14:00 (Aspirin) 325 mg DAILY PO 08/26/17 09:00 (Glucotrol) 10 mg DAILY PO 08/26/17 09:00 (Synthroid) 75 mcg DAILY@0600 PO 08/26/17 06:00 08/26/17 04:55 (Prinivil) 5 mg DAILY PO 08/26/17 09:00 (KCl) 20 meq BID PO 08/25/17 21:00 08/25/17 21:26 (Abhinav-24) 400 mg DAILY PO 08/26/17 09:00 Patient Own Medication PT OWN MED: Budeson... DAILY PO 08/26/17 09:00 Future Hold (Tricor) 48 mg DAILY PO 08/26/17 09:00 Patient Own Medication PT OWN MED: (Mesalam... DAILY PO 08/26/17 09:00 Future Hold (Pravachol) 40 mg DAILY PO 08/25/17 16:45 08/25/17 17:54 (D50w (Vial) Inj) 50 ml UNSCH PRN IV PUSH 08/25/17 17:00 (Glucagon Inj) 1 mg UNSCH PRN OTHER 08/25/17 17:00 (NovoLOG SUPPLEMENTAL SCALE) 1 ACHS SLIDING SCALE SQ 08/25/17 17:00 (Catapres) 0.2 mg Q6H PRN PO 08/25/17 17:45 (Questran 4 Gm Pkt) 4 gm BID PO 08/25/17 21:00 08/25/17 21:00 (Neurontin) 300 mg TID PO 08/25/17 18:00 08/25/17 19:11 (Zaroxolyn) 5 mg DAILY PO 08/26/17 09:00 08/26/17 06:34 Vital Signs / I&O Vital Signs Date Time Temp Pulse Resp B/P (MAP) Pulse Ox O2 Delivery O2 Flow Rate FiO2 08/26/17 07:48 97.8 107 18 170/78 (108) 97 08/26/17 05:28 Nasal Cannula 2.50 08/26/17 03:16 97.9 100 18 136/72 (93) 97 08/25/17 23:36 97.9 108 18 134/70 (91) 96 08/25/17 23:00 64 08/25/17 19:40 98.2 113 20 162/78 (106) 98 08/25/17 18:12 97.6 109 16 174/81 (112) 99 08/25/17 17:48 106 08/25/17 16:15 08/25/17 15:49 97.6 97 16 162/80 (107) 94 08/25/17 14:03 100 Nasal Cannula 2.00 08/25/17 13:16 74 18 171/76 (107) 98 Nasal Cannula 2.00 08/25/17 12:16 76 18 189/79 (115) 99 Nasal Cannula 2.00 08/25/17 09:06 131/68 (89) 155/76 (102) 08/25/17 08:57 Nasal Cannula 2.00 08/25/17 08:57 Nasal Cannula 2.00 08/25/17 08:57 94 Room Air 08/25/17 08:13 98.7 97 14 201/88 (125) 94 I/O 08/25/17 08/25/17 08/25/17 08/26/17 08/26/17 08/26/17 06:59 14:59 22:59 06:59 14:59 22:59 Intake Total 748 ml 120 ml Output Total 670 ml 400 ml Balance 78 ml -280 ml Intake Oral 740 ml 120 ml IV Total 8 ml Output Urine Total 670 ml 400 ml Physical Exam Lungs: CTA Cardiac: Regular rate rhythm without murmur gallop GI: Nontender. Bowel sounds normal. Extremities: No edema. tenderness. Laboratory Laboratory Tests Test 08/25/17 09:05 08/25/17 09:30 08/25/17 15:45 08/25/17 18:05 White Blood Count 11.6 TH/MM3 Red Blood Count 4.44 MIL/MM3 Hemoglobin 12.6 GM/DL Hematocrit 38.1 % Mean Corpuscular Volume 85.8 FL Mean Corpuscular Hemoglobin 28.3 PG Mean Corpuscular Hemoglobin Concent 33.0 % Red Cell Distribution Width 13.9 % Platelet Count 320 TH/MM3 Mean Platelet Volume 7.2 FL Neutrophils (%) (Auto) 51.7 % Lymphocytes (%) (Auto) 38.9 % Monocytes (%) (Auto) 6.1 % Eosinophils (%) (Auto) 2.5 % Basophils (%) (Auto) 0.8 % Neutrophils # (Auto) 6.0 TH/MM3 Lymphocytes # (Auto) 4.5 TH/MM3 Monocytes # (Auto) 0.7 TH/MM3 Eosinophils # (Auto) 0.3 TH/MM3 Basophils # (Auto) 0.1 TH/MM3 CBC Comment DIFF FINAL Differential Comment Prothrombin Time 10.3 SEC Prothromb Time International Ratio 0.9 RATIO Activated Partial Thromboplast Time 26.8 SEC Blood Urea Nitrogen 17 MG/DL Creatinine 0.53 MG/DL Random Glucose 146 MG/DL Total Protein 6.6 GM/DL Albumin 2.7 GM/DL Calcium Level 8.6 MG/DL Alkaline Phosphatase 56 U/L Aspartate Amino Transf (AST/SGOT) 22 U/L Alanine Aminotransferase (ALT/SGPT) 18 U/L Total Bilirubin 0.4 MG/DL Sodium Level 138 MEQ/L Potassium Level 4.9 MEQ/L Chloride Level 105 MEQ/L Carbon Dioxide Level 24.0 MEQ/L Anion Gap 9 MEQ/L Estimat Glomerular Filtration Rate 117 ML/MIN Total Creatine Kinase 82 U/L 48 U/L 54 U/L Troponin I 0.02 NG/ML 0.02 NG/ML 0.02 NG/ML B-Type Natriuretic Peptide 111 PG/ML Lactic Acid Level 2.0 mmol/L Imaging Last 24 hours Impressions Chest X-Ray 08/25/17 0846 Signed Impressions: Service Date/Time: Friday, August 25, 2017 09:04 - CONCLUSION: Minimal bibasilar densities likely atelectasis. Tom Smith MD Assessment and Plan Problem List: (1) CHF (congestive heart failure), NYHA class III ICD Codes: I50.9 - Heart failure, unspecified Status: Acute (2) Cirrhosis ICD Codes: K74.60 - Unspecified cirrhosis of liver Status: Chronic (3) Chronic diarrhea ICD Codes: K52.9 - Noninfective gastroenteritis and colitis, unspecified Status: Chronic (4) Chronic congestive heart failure Status: Acute (5) Dyslipidemia Status: Chronic (6) Tobacco dependence, continuous Status: Chronic (7) Benign essential hypertension Status: Chronic (8) Ischemic colitis ICD Codes: K55.9 - Vascular disorder of intestine, unspecified Status: Chronic (9) Chronic obstructive lung disease ICD Codes: J44.9 - Chronic obstructive lung disease Status: Chronic (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: E10.9 - Type 1 diabetes mellitus without complications Status: Chronic (11) Hypothyroidism ICD Codes: E03.9 - Hypothyroidism, unspecified Status: Chronic (12) DM (diabetes mellitus) ICD Codes: E11.9 - Type 2 diabetes mellitus without complications Status: Chronic (13) Chest pain ICD Codes: R07.9 - Chest pain, unspecified Status: Acute (14) Restrictive lung disease ICD Codes: J98.4 - Restrictive lung disease Status: Chronic (15) Hip pain, chronic ICD Codes: G89.29 - Other chronic pain; M25.559 - Chronic hip pain Status: Chronic (16) Pulmonary nodule seen on imaging study ICD Codes: R91.1 - Solitary pulmonary nodule Status: Chronic Assessment and Plan Continue this plan. Patient diuresed approximately 1 L. Feeling better. 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 Return to ED for interval issues. Problem Qualifiers (1) CHF (congestive heart failure), NYHA class III: Qualified Codes: I50.9 - Heart failure, unspecified (2) Chest pain: Qualified Codes: R07.9 - Chest pain, unspecified Leonel Butler Aug 26, 2017 08:13
[2017-08-26] MEDS: INSULIN ASPART SUPPLEMENTAL SCALE SQ SCH (08:31)
[2017-08-26 08:34] VITALS: O2SAT 97
[2017-08-26] MEDS ORDERED: ASPIRIN 325 MG TAB PO SCH (09:00)
[2017-08-26] MEDS ORDERED: FENOFIBRATE 48 MG TAB PO SCH (09:00)
[2017-08-26] MEDS ORDERED: MESALAMINE 1.5 GM PO SCH (09:00)
[2017-08-26] MEDS ORDERED: METOLAZONE 5 MG TAB PO SCH (09:00)
[2017-08-26] MEDS ORDERED: BUDESONIDE 6 MG PO SCH (09:00)
[2017-08-26] MEDS ORDERED: THEOPHYLLINE 200 MG EXTENDED RELEASE CAP PO SCH (09:00)
[2017-08-26] MEDS ORDERED: LISINOPRIL 5 MG TAB PO SCH (09:00)
[2017-08-26] MEDS ORDERED: glipiZIDE 10 MG TAB PO SCH (09:00)
--- NOTE | 2017-08-26 18:24 | EKG ---
Date Performed: 08/25/2017 Time Performed: 15:56:25 PTAGE: 62 years EKG: Sinus rhythm INDETERMINATE AXIS RIGHT BUNDLE BRANCH BLOCK ABNORMAL ECG PREVIOUS TRACING : 08/25/2017 08.55 Since previous tracing, no significant change noted DOCTOR: Sly Bergman Interpretating Date/Time 08/26/2017 18:22:53
[2017-08-28] MEDS ORDERED: GLIP10TA6 PO (08:15)
== END 2017-08-26 11:35 | disposition home or self-care (01) ==
LOC: NEPE 08:11 → NEDA 13:03 → NEPHCDU 15:51
PROVIDERS: ADMIT Internal Medicine Interventional Cardiology; ATTEND Internal Medicine Interventional Cardiology
DX: R07.9 Chest pain, unspecified (principal); J44.9 Chronic obstructive pulmonary disease, unspecified; I50.9 Heart failure, unspecified; I11.0 Hypertensive heart disease with heart failure; I25.10 Atherosclerotic heart disease of native coronary artery without angina pectoris; K51.90 Ulcerative colitis, unspecified, without complications; E78.00 Pure hypercholesterolemia, unspecified; K44.9 Diaphragmatic hernia without obstruction or gangrene; I21.9 Acute myocardial infarction, unspecified; F17.210 Nicotine dependence, cigarettes, uncomplicated; Z79.4 Long term (current) use of insulin; Z79.899 Other long term (current) drug therapy; E66.9 Obesity, unspecified; E03.9 Hypothyroidism, unspecified; K74.60 Unspecified cirrhosis of liver; J96.91 Respiratory failure, unspecified with hypoxia; R91.1 Solitary pulmonary nodule; K55.9 Vascular disorder of intestine, unspecified; E10.9 Type 1 diabetes mellitus without complications; J98.4 Other disorders of lung; G89.29 Other chronic pain; R94.31 Abnormal electrocardiogram [ECG] [EKG]; I45.10 Unspecified right bundle-branch block
CPT/HCPCS: 71010; 71250; 74177; 80053; 82550; 82948; 83605; 83880; 84484; 85025; 85610; 85730; 93005; 96374; 96375; 99285; G0378; J1940; J2270; J2405; Q9967